=== PATIENT | male | born 2000 | race Caucasian/White ===

== ENCOUNTER 2022-02-14 14:52 | Emergency (ER) | payer SELFPAY ==
[2022-02-14 15:06] VITALS: BP 115/71; PULSE 84; RESP 16; TEMP 36.6; O2SAT 99
--- NOTE | 2022-02-14 15:48 | ED.URI ---
HPI - URI/Sore Throat General Chief Complaint: Upper Respiratory Infection Stated Complaint: Sore Throat,Coughing,Sneezing Time Seen by Provider: 02/14/22 15:49 Source: patient and RN notes reviewed Mode of arrival: ambulatory Limitations: no limitations History of Present Illness HPI Narrative: 21 y/o male presented for c/o Headache, body aches, sinus pressure/congestion, cough, nausea, fever/chills. onset yesterday. Took negative covid test at home yesterday. Patient has had a vacc for covid not vacc for flu. daily smoker. Taking Tylenol for symptoms. States neighbor tested positive for covid. MD elicited complaint: cough Related Data Allergies Allergy/AdvReac Type Severity Reaction Status Date / Time No Known Allergies Allergy Verified 02/14/22 15:46 Review of Systems Review of Systems: CONSTITUTIONAL: Endorses malaise, chills, sweats, fever EYES: Denies visual changes, redness, or discharge ENT: Reports rhinorrhea, congestion, sore throat CARDIOVASCULAR: Denies chest pain, palpitations, edema RESPIRATORY: Reports cough, post nasal drainage. Denies dyspnea GASTROINTESTINAL: Denies abdominal pain, vomiting, diarrhea SKIN: Denies rash or itching MUSCULOSKELETAL: Endorses myalgia Exam Narrative: GENERAL: Ill-appearing, nontoxic EYES: PERRLA, conjunctivae clear ENT: Mucous membranes moist. TMs with dull light reflex bilaterally; no tragal tenderness. Oropharynx erythematous without lesions or exudate, tonsils absent, no drooling, no hoarseness, no trismus, uvula midline. No tripod positioning, muffled voice, soft palate or pharyngeal wall bulging NECK: Supple. No lymphadenopathy CHEST: Clear to auscultation, breath sounds equal. No wheezing, rhonchi, rales, or stridor. No respiratory distress, speaks in full sentences. HEART: Regular rate and rhythm. No murmur heard. SKIN: Warm, dry, no rash. NEURO: Alert and oriented x3. PSYCH: Normal mood and affect Course Course Emergency Course: Patient is aware of diagnosis, understands and agrees to treatment plan. Anticipatory guidance given. Patient agrees to follow-up as directed and is aware of reasons to seek care at the emergency department. Portions of this record may have been created with voice recognition software Level of Care: Express Care Visit Vital Signs Vital signs: Vital Signs Temperature 97.9 F 02/14/22 15:06 Pulse Rate 84 02/14/22 15:06 Respiratory Rate 16 02/14/22 15:06 Blood Pressure 115/71 02/14/22 15:06 Pulse Oximetry 99 02/14/22 15:06 Oxygen Delivery Room Air 02/14/22 15:06 Temperature 97.9 F 02/14/22 15:06 Pulse Rate 84 02/14/22 15:06 Respiratory Rate 16 02/14/22 15:06 Blood Pressure 115/71 02/14/22 15:06 Pulse Oximetry 99 02/14/22 15:06 Oxygen Delivery Room Air 02/14/22 15:06 reviewed MDM - URI/Sore Throat MDM Narrative Medical decision making narrative: flu negative covid negative. Results reviewed with patient. Advised supportive measures and signs/symptoms to go to the ER. Pt is appropriate for outpt treatment and f/u. Differential Diagnosis Differential diagnosis: Likely upper respiratory infection, sinusitis and viral infection Lab Data Labs: Influenza A Screen Negative Reference Range: Negative Influenza B Screen Negative Reference Range: Negative Discharge Plan Discharge Clinical Impression: Viral infection Patient Disposition: Home, Self-Care Condition: Stable Instructions: Viral Syndrome (ED) Additional Instructions: influenza negative Your rapid covid test was negative today. It may be too early to detect the virus, therefore we recommend retesting at home in 1-2 days Continue to follow general precautions: frequent handwashing, wear a mask, isolate/social distance, and avoid crowds if you have a fever. You must be fever free for 24 ho
== END 2022-02-14 16:35 | disposition home or self-care (01) ==
PROVIDERS: Emergency Provider Nurse Practitioner Family
DX: B34.9 Viral infection, unspecified (principal); Z20.822 Contact with and (suspected) exposure to COVID-19; F17.290 Nicotine dependence, other tobacco product, uncomplicated
CPT/HCPCS: 87426; 87804; 99203; C9803; G0463